=== PATIENT | female | born 1965 ===

== ENCOUNTER 2017-01-25 08:37 | Day surgery (SDC) | payer MEDICAID ==
[2017-01-25] MEDS ORDERED: Dexamethasone 4 mg/1 ml ONE ×2 (09:36→10:25)
[2017-01-25] MEDS ORDERED: Bupivacaine 0.5% Inj(30mL) ONE (09:37)
[2017-01-25] MEDS ORDERED: Bacitracin Ointment 30 GM TUBE ONE (09:37)
[2017-01-25] MEDS ORDERED: Lidocaine 1% Inj (20ml) ONE (09:37)
[2017-01-25] MEDS ORDERED: ceFAZolin IV 1 gm in Dextrose 0 GM/0 ML BAG IVPB ONE (09:38)
[2017-01-25] MEDS ORDERED: Lactated Ringer's 1,000 ML IV ONE (09:45)
[2017-01-25] MEDS ORDERED: Propofol 10 mg/ml Inj (20 ML) ONE (09:49)
[2017-01-25] MEDS ORDERED: Midazolam 2 MG/2 ML VIAL ONE (09:49)
[2017-01-25] MEDS ORDERED: Clindamycin 600mg/50ml NS 600 MG/50 ML BAG IVPB ONE (09:57)
[2017-01-25] MEDS ORDERED: HYDROmorphone 0.5 mg/0.5 ml ISec IVP PRN (10:08)
[2017-01-25] MEDS ORDERED: Oxycodone/Acetaminophen 5/325 mg Tab PO PRN (10:46)
--- NOTE | 2017-01-25 10:50 | PCM.SURG1 ---
<Robson Dorado - Last Filed: 01/25/17 10:48> Surgeon's Initial Post Op Note - Surgeon's Notes Surgeon: Dr. Wilson Revenue Director: Nadiya Dorado, PGY2; Bakari Locke PGY1 Type of Anesthesia: IV Sedation, Local Anesthesia Administered By: Dr. Crystal Pre-Operative Diagnosis: 1) Right foot 2nd digit hammertoe deformity 2) Right foot 1st MPJ capsulitis Operative Findings: See dictation. I: 4mL Decadrom; 5mL 0.5% marcaine plain Post-Operative Diagnosis: Same as pre-operative Operation Performed: 1) Right foot 2nd digit PIPJ arthroplasty. 2) Right foot 1st MPJ intra-articular corticostroid injection Specimen/Specimens Removed: Right foot 2nd digit bone Estimated Blood Loss: EBL {In ML}: 3 Blood Products Given: N/A Drains Used: No Drains Post-Op Condition: Good Date of Surgery/Procedure: 01/25/17 Time of Surgery/Procedure: 10:51 <Tristin Santana - Last Filed: 01/25/17 11:04> Surgeon's Initial Post Op Note - Surgeon's Notes Pre-Operative Diagnosis: hammertoe pain 3,4 Right foot Operation Performed: 3) Right foot corticosteriod injection toes 3,4
[2017-01-25 11:53] VITALS: BP 120/80; PULSE 83; RESP 18; TEMP 97; O2SAT 100
--- NOTE | 2017-01-28 16:39 | OP ---
PROCEDURE DATE: 01/25/2017 SURGEON: Tristin Santana DPM ASSISTANTS: Robson Dorado DPM, PGY2 and Bakari Locke DPM, PGY1. ANESTHESIA TYPE: IV sedation with local. ANESTHESIOLOGIST: Dr. Crystal PREOPERATIVE DIAGNOSES: 1. Right foot second digit hammertoe deformity. 2. Right foot first metatarsophalangeal joint capsulitis. POSTOPERATIVE DIAGNOSES: 1. Right foot second digit hammertoe deformity. 2. Right foot first metatarsophalangeal joint capsulitis. PROCEDURES PERFORMED: 1. Right foot second digit PIPJ arthroplasty. 2. Right foot first metatarsophalangeal joint intra-articular cortical steroid injection. SPECIMEN: Right foot second digit bone. INDICATIONS: The patient is a 51-year-old female with above-stated diagnoses. The patient has exhausted of all conservative treatment options provided by Dr. Santana and his office on outpatient basis and now is in need of surgical intervention. The patient signed the surgical consent after careful explanation of risks, benefits, complications and potential alternatives to proposed surgical procedure. No guarantees were neither given nor employed. All patient's questions were answered to her satisfaction. PREPARATION: The patient's n.p.o. status was confirmed prior to bringing the patient to the operating room. The patient was brought into the operating room and placed on the operating room table in supine position. Once IV sedation was confirmed to have been achieved, the patient received a well-padded pneumatic tourniquet in the supramalleolar position to the right ankle. The patient then received a total of 7 mL of a 1:1 mixture of 2% lidocaine plain to 0.5% Marcaine plain in a local block type fashion to the right foot. Once local anesthetic was confirmed to have been achieved, the patient's right foot was then prepped and draped in the usual sterile manner. Tourniquet was inflated to 250 mmHg and the procedure began. PROCEDURE: Attention was then directed to the dorsal aspect of the patient's right foot second digit where a linear longitudinal incision was made, using #15 blade, overlying the proximal interphalangeal joint whose total length was 2.5 cm. This incision was extended down through subcutaneous tissue using sharp dissection. Care was taken to avoid all vital neurovascular structures. All bleeders were cauterized and ligated as needed. At this time, a transverse capsulotomy was performed and extensor digitorum tendon was retracted proximally. The head of the proximal phalanx was then freed up from its capsular and ligamentous attachments. At this time, an oscillating saw was introduced and the head of the proximal phalanx was transected and passed from the operative field to be sent as a specimen for pathology. At this time, sharp bone edges and margins of remaining proximal pahlynx were then rasped down, so no prominences remained. Incision site was then flushed with copious amounts of sterile saline. Extensor digitorum tendon was reapproximated using 3-0 Vicryl. Skin was reapproximated using 4-0 Prolene in a simple suture type fashion. The patient then received 4 mLs of a dexamethasone 4 mg/mL and 5mls of 0.5% Marcaine plain, evenly distributed intra-articularly to 1st, 2nd, 3rd, and 4th metatarsophalangeal joints. At this time, surgical site was then dressed with Xeroform, 4 x 4 gauze, Kerlix, Lisa and Gustabo. POSTOPERATIVE CONDITION: The patient tolerated the anesthesia and procedure well and was escorted to the recovery room with vital signs stable and neurovascular status intact to the right foot. The patient will follow with Dr. Santana in his office on an outpatient basis. Tristin Santana DPM Robson Dorado DPM CRAIG
== END 2017-01-25 13:12 | disposition home or self-care (01) ==
LOC: C.SDS 08:37
PROVIDERS: ATTEND Podiatrist Foot & Ankle Surgery
DX: M20.11 Hallux valgus (acquired), right foot (principal); M20.41 Other hammer toe(s) (acquired), right foot
CPT/HCPCS: 20600; 28285; 88305; 88311; J1100; J2250; J2704; J3010; J7120